=== PATIENT | male | born 1970 | race Caucasian/White ===

== ENCOUNTER 2023-02-21 13:39 | Emergency (ER) | payer MEDICAID ==
[~2023-02-21] VITALS: Ht 175.3 cm; Wt 85.0 kg
[2023-02-21 13:45] VITALS: BP 106/70; PULSE 88; RESP 18; TEMP 98.8; O2SAT 98
[2023-02-21] MEDS ORDERED: OMEP40CA20 MT (16:27)
[2023-02-21] MEDS ORDERED: IBUP-2030 MT (16:27)
[2023-02-21] MEDS ORDERED: CIPR500T5 MT (16:27)
== END 2023-02-21 17:35 | disposition home or self-care (01) ==
LOC: ER 15:34
DX: Z46.6 Encounter for fitting and adjustment of urinary device (principal); F20.9 Schizophrenia, unspecified
CPT/HCPCS: 51702; 99284; A4315